=== PATIENT | male | born 1995 | race Two or more races ===

== ENCOUNTER 2024-03-14 18:32 | Emergency (ER) | payer MEDICARE, SELFPAY ==
--- NOTE | 2024-03-14 18:48 | PD.EDRME ---
Rapid Medical Screening Exam RME Arrival date/time: 03/14/24 18:32 Time Seen by Provider: 03/14/24 18:45 RME Narrative: 28-year-old male with history of seizure disorder brought in by ambulance after had 1 minute witnessed seizure. The patient was lowered to the ground and did not hit his head. No fevers.
--- NOTE | 2024-03-14 18:49 | EDNOTE_ITS ---
ED General RME/HPI General Chief complaint: Seizure Stated complaint: SEIZURE Time Seen by Provider: 03/14/24 18:45 Arrival date/time: 03/14/24 18:32 Limitations: no limitations RME / HPI RME / HPI narrative: 28-year-old male with no history of seizure disorder brought in by ambulance after had 1 minute witnessed seizure. The patient was lowered to the ground and did not hit his head. No fevers. Dr. Castro's Main ED Evaluation: 28-year-old male with intellectual disability with intermittent explosive disorder, autism and history of tachycardia who had a [place] seizure for the first time. They report that he had no headache today and otherwise no weakness. No pupillary abnormality. Patient is on trazodone/ARipiprazole, Clozipine. During the event his pulse was 96 otherwise. fingerstick was 106. No tongue biting, and he did not urinate on himself. The mergers and acquisitions consultant that is here in the Ed with did not witnewss the seizure and the patient is back to baseline. The patient is on medications for schizoaffective disorder, intermittent explosive disorder, essential hypertension, propranolol for tachycardia Review of Systems Review of Systems Systems Reviewed: All systems reviewed, normal except as documented Past Medical History Social History SMOKING STATUS: Never smoker ED Exam General Limitations: Present no limitations General appearance: Present alert and in no apparent distress Head Head exam: Present atraumatic Eye Eye exam: Present normal appearance, PERRL and EOMI ENT ENT exam: Present normal exam, normal oropharynx and mucous membranes moist Neck Neck exam: Present normal inspection, full ROM and trachea midline Chest Chest inspection: Present normal inspection and symmetric chest wall rise Respiratory Respiratory exam: Present normal lung sounds bilaterally Cardiovascular Cardiovascular exam: Present regular rate, normal rhythm and normal heart sounds Abdominal Exam Abdominal exam: Present soft and normal bowel sounds Extremities Exam Extremities exam: Present normal inspection and full ROM Back Exam Back exam: Present normal inspection and full ROM Neurological Exam Neurological exam: Present alert, oriented X3 and CN II-XII intact Psychiatric Psychiatric exam: Present normal affect and normal mood Skin Skin exam: Present warm, dry, intact and normal color Course Course Course Narrative: CXR is ordered to r/o aspiration pneumonia. Quality Measures none Orders Category Date Time Status IV [Insert IV] STAT Care 03/14/24 18:52 Active Seizure precautions ONCE Care 03/14/24 18:[address] head/brain wo con Stat Exams 03/14/24 19:26 Completed CXRP [XR chest 1V portable] Stat Exams 03/14/24 20:59 Completed CBC Stat Lab 03/14/24 19:26 Completed CMP [Comprehensive Metabolic Panel] Stat Lab 03/14/24 19:26 Completed Drug Screen,Urine Stat Lab 03/14/24 20:34 Completed Urinalysis Stat Lab 03/14/24 20:34 Completed Vital Signs Vital signs: Vital Signs Temperature 98.1 F 03/14/24 18:52 Pulse Rate 94 03/14/24 18:52 Blood Pressure 116/70 03/14/24 18:52 Pulse Oximetry (%) 96 03/14/24 18:52 Oxygen Delivery Method Room Air 03/14/24 18:52 Pulse ox is 96% on room air, which is normal according to my interpretation. [facility] Patient data External records reviewed:: [facility] previous records (Per chart review, patient has no previous ED visits or admissions to this facility.) Clinical information provided by:: patient and EMS Social determinants that could affect healthcare access:: none Patient has the following chronic illnesses:: HTN, schizoaffective disorder How is presenting disease/condition affected by chronic disease/condition?: u neffected by Evaluation data The following diagnostics were reviewed and interpreted by me:: lab results and radiology exam(s) Lab and/or radiology exams considered but not ordered:: none Interpretation Summary: CBC is normal, Potassium is slightly low at 3.2, UA is unremarkable, UDS is negative, according to my interpretation. CXR show mild cardiomegaly, interstitial markings, no obvious infiltrate, no CHF, no aspiration pneumonia, according to my interpretation. ----- I have personally reviewed the radiology data and agree with the radiologist's interpretation below: [facility] Report Signed Patient: MOI BRADY. Record#: [id number] Birthdate: 1995 Age/Sex: 28 / M Location: [facility] Attending Dr: Ordering Physician: Abbie Castro MD Date of Service: 03/14/24 Procedure(s): CT head/brain wo con Accession Number(s): [id number] cc: Walter Christy MD; NO PRIMARY/FAMILY,PHYSICIAN; Abbie Castro MD~ Examination: CT brain head without contrast. 2-D sagittal coronal reconstructions Date and time of exam:March 14, 2024 1948 hrs. Comparison May 05, 2023 Indications: Seizure episode with syncope today CTDI: vol (mGy):62.3 DLP: (mGycm):1316 Technique: Multiple CT axial sections of the brain have been obtained, 5 mm slice thickness. Contrast has not been administered. 2-D sagittal, coronal reconstructions have been obtained Low dose protocols were performed. One or more of the following dose reduction techniques were used; automated exposure control, adjustment of the mA and/or KV according to patient size, use of iterative reconstruction technique. Findings: No significant ventricular enlargement. Intra-axial or extra-axial hemorrhage density is not seen. No mass effect or midline shift Basal cisterns are not remarkable. Fourth ventricle is midline. Cranial vault intact. Impression: Negative for acute hemorrhage, mass effect or midline shift Dictated By: Walter Christy MD Signed By: <Electronically signed by Walter Christy MD in OV> 03/14/242000 Medications Medications considered but not ordered:: none Medication administrations:: see above, if any Consultations Consultation(s) initiated? (list below): No Diagnosis Differential Diagnosis ED Complaint MDM: choking episode, hyponatremia, electrolyte abnormality, dehydration Most likely diagnosis given after review of the tests above:: Other DDx: lack of sleep, behavioral issue Final Dx: see below Admission Indicated Admission indicated?: not indicated Explain why admission is indicated or not indicated:: Admission criteria not met. Admission Request Was there a request for admission?: No Disposition Plan Disposition Plan: Discharge Discharge Attestation Discharge Attestation: The patient and all family members were given an opportunity to ask questions and understood the discharge instructions. Discharge instructions specifically effects, indications for sooner follow up or return to the emergency department, and the expected course of current diagnosis. Patient condition: Stable Medical Decision Making MDM Narrative MDM Narrative: DDX: Dehydration, UTI, Tumor, Syncope, new seizure Swepsis. 28-year-old male with schizoaffective disorder presenting to the emergency department with possible seizure. I spoke to the nurse who witnessed the event who stated that the patient was at the dining area and appeared to be choking they went over and he was stiff. They lowered him to the ground and otherwise he did not have any tonic-clonic activity and he did not lose consciousness. The patient did not have a fever and otherwise is back at his baseline. He did not fall and hit his head. In the emergency department the patient has a temperature of 98 and otherwise is not tachycardic or hypotensive. While in the emergency department the patient had a CT scan that did not show tumor. Doubt actual seizure. Could have been choking episode. At this time the patient does not have evidence of aspiration pneumonia, O2 saturation is normal and otherwise has no wheezing. Differential Diagnosis Differential Diagnosis: choking episode, hyponatremia, electrolyte abnormality, dehydration Lab Data 03/14/24 19:26 03/14/24 19:26 Labs: Lab Results 03/14/24 03/14/24 Range/Units 19:26 20:34 WBC 9.8 (3.8-10.6) Thou/mm3 RBC 4.59 (4.50-5.90) Miln/mm3 Hgb 13.3 L (13.5-16.0) g/dL Hct 37.9 L (41.0-53.0) % MCV 83 (80-100) fL MCH 29.0 (25.0-35.0) pg MCHC 35.1 (31.0-37.0) g/dl RDW Std Deviation 36.1 (35.1-43.9) fL Plt Count 207 (140-440) Thou/mm3 Neut % (Auto) 76 (37-80) % Lymph % (Auto) 20 (10-50) % [place] % (Auto) 3 (0-12) % Eos % (Auto) 1 (0-10) % Baso % (Auto) 0 (0-2.5) % Neut # (Auto) 7.5 (1.8-7.7) Thou/mm3 Lymph # (Auto) 1.9 (1.0-4.8) Thou/mm3 [place] # (Auto) 0.3 (0.0-0.8) Thou/mm3 Eos # (Auto) 0.1 (0.0-0.5) Thou/mm3 Baso # (Auto) 0.0 (0.0-0.2) Thou/mm3 Immature Gran # (Auto) 0.03 H (0.00-0.00) Thou/mm3 Absolute Nucleated RBC 0.00 (0.00-0.00) Thou/mm3 Immature Gran % 0 (0-0) % Nucleated RBC % 0 (0) /100 WBC Sodium 140 (136-145) mMol/L Potassium 3.2 L (3.4-5.1) mMol/L Chloride 105 (98-107) mMol/L Carbon Dioxide 26.8 (20.0-31.0) mMol/L Anion Gap 8 (7-16) BUN 10 (9-23) mg/dL Creatinine 1.0 (0.6-1.3) mg/dL Estim Creat Clear Calc 115.4 (>60) mL/min eGFR > 60 (60 - ) See Note BUN/Creatinine Ratio 10 L (12-20) Ratio Glucose 120 H (74-106) mg/dL Calculated Osmolality 279 (275-295) Calcium 9.4 (8.3-10.6) mg/dL Corrected Calcium 9.4 (8.5-10.1) mg/dL Total Bilirubin 0.4 (0.3-1.2) mg/dL AST 34 (0-34) U/L ALT 69 H (10-49) U/L Alkaline Phosphatase 52 (46-116) U/L Total Protein 7.2 (5.7-8.2) gm/dL Albumin 4.4 (3.5-5.0) gm/dL Globulin 2.8 (2.3-3.5) gm/dL Albumin/Globulin Ratio 1.6 (1.2-2.2) Ur Collection Type Voided Urine Color Lt-Yellow (Lt Yel-Yel) Urine Clarity Clear (Clear/Hazy) Urine pH 8.0 H (5.0-7.0) Ur Specific [place] 1.021 (1.001-1.035) Urine Protein Trace (Neg - Trace) Urine Glucose (UA) Negative (Negative) Urine Ketones Negative (Negative) Urine Blood Negative (Negative) Urine Nitrite Negative (Negative) Urine Bilirubin Negative (Negative) Urine Urobilinogen (Auto) Negative (0.0-1.0) mg/dL Ur Leukocyte Esterase Negative (Negative) Urine RBC 3 (0-3) /hpf Urine WBC 1 (0-5) /hpf Ur Squamous Epith Cells 0 (0-5) /hpf Urine Bacteria Rare (None) Hyaline Casts < 1 (0-1) /hpf Urine Opiates Screen Negative (Negative) Urine Fentanyl Screen Negative (Negative) Ur Barbiturates Screen Negative (Negative) U Amphetamin/Meth Scrn Negative (Negative) U Benzodiazepines Scrn Negative (Negative) U Cocaine Metab Screen Negative (Negative) U Marijuana (THC) Screen Negative (Negative) Discharge Plan Plan Patient Disposition: HOME (Self Care) Disposition Comment: [facility] Patient condition on transfer: Stable Prescriptions/Referrals Referrals: No Primary/Family,Physician [Primary Care Provider] - In 1 week Problem List Clinical Impression: Choking episode Patient/Caregiver Discharge Instructions Education Materials: ED Symptoms With Uncertain Cause Additional Instructions: Stream unsure if the patient actually had a seizure versus just a side effect from a possible choking episode. Please follow-up with his primary care to get a possible EEG as an outpatient if he has a another episode but at this time the patient is stable to be discharged back to the facility. His potassium was slightly decreased which has been replaced. I will recheck his potassium level in 1 week. Return to the emergency department for worsening symptoms, or any other concerns. Avoid activity in which the patient can of fall and hit his head like riding a bike or swimming alone. Print Language: Cymro Stand Alone Forms: Jessie Award Info., Patient Portal Info Letter
[2024-03-14 18:52] VITALS: BP 116/70; PULSE 94; TEMP 36.7; O2SAT 96
[2024-03-14 18:56] VITALS: BP 105/71; PULSE 93; RESP 19; TEMP 36.9; O2SAT 96
--- NOTE | 2024-03-14 19:26 | XR_ITS ---
Examination: CT brain head without contrast. 2-D sagittal coronal reconstructions Date and time of exam:March 14, 2024 1948 hrs. Comparison May 05, 2023 Indications: Seizure episode with syncope today CTDI: vol (mGy):62.3 DLP: (mGycm):1316 Technique: Multiple CT axial sections of the brain have been obtained, 5 mm slice thickness. Contrast has not been administered. 2-D sagittal, coronal reconstructions have been obtained Low dose protocols were performed. One or more of the following dose reduction techniques were used; automated exposure control, adjustment of the mA and/or KV according to patient size, use of iterative reconstruction technique. Findings: No significant ventricular enlargement. Intra-axial or extra-axial hemorrhage density is not seen. No mass effect or midline shift Basal cisterns are not remarkable. Fourth ventricle is midline. Cranial vault intact. Impression: Negative for acute hemorrhage, mass effect or midline shift
[2024-03-14 19:35] VITALS: BMI 28.8
[2024-03-14 19:36] LABS: Basophils % (Auto) 0 % (0-2.5); Eosinophils # (Auto) 0.1 Thou/mm3 (0.0-0.5); Eosinophils % (Auto) 1 % (0-10); Hematocrit 37.9 % (41.0-53.0); Hemoglobin 13.3 g/dL (13.5-16.0); Immature Granulocytes % (Auto) 0 % (0-0); Immature Granulocytes Auto 0.03 Thou/mm3 (0.00-0.00); Lymphocytes # (Auto) 1.9 Thou/mm3 (1.0-4.8); Lymphocytes % (Auto) 20 % (10-50); Mean Corpuscular HGB Conc 35.1 g/dl (31.0-37.0); Mean Corpuscular Volume 83 fL (80-100); Monocytes # (Auto) 0.3 Thou/mm3 (0.0-0.8); Monocytes % (Auto) 3 % (0-12); Neutrophils # (Auto) 7.5 Thou/mm3 (1.8-7.7); Neutrophils % (Auto) 76 % (37-80); Nucleated Red Blood Cell % 0 /100 WBC (0); Platelet Count 207 Thou/mm3 (140-440); RDW Standard Deviation 36.1 fL (35.1-43.9); Red Blood Count 4.59 Miln/mm3 (4.50-5.90); White Blood Count 9.8 Thou/mm3 (3.8-10.6)
[2024-03-14 19:56] LABS: Alanine Aminotransferase 69 U/L (10-49); Albumin, Serum 4.4 gm/dL (3.5-5.0); Albumin/Globulin Ratio 1.6 (1.2-2.2); Alkaline Phosphatase 52 U/L (46-116); Anion Gap 8 (7-16); Aspartate Amino Transferase 34 U/L (0-34); BUN/Creatinine Ratio 10 Ratio (12-20); Bilirubin,Total 0.4 mg/dL (0.3-1.2); Blood Urea Nitrogen 10 mg/dL (9-23); Calcium 9.4 mg/dL (8.3-10.6); Calcium (Corrected) 9.4 mg/dL (8.5-10.1); Carbon Dioxide 26.8 mMol/L (20.0-31.0); Chloride 105 mMol/L (98-107); Estimated Creatinine Clearance 115.4 mL/min (>60); Globulin 2.8 gm/dL (2.3-3.5); Glucose 120 mg/dL (74-106); Osmolality,Calculated 279 (275-295); Potassium 3.2 mMol/L (3.4-5.1); Sodium 140 mMol/L (136-145); Total Protein 7.2 gm/dL (5.7-8.2); eGFR > 60 See Note
[2024-03-14 20:52] LABS: Collection Type, Urine Voided; Squamous Epithelial Cell,Urine 0 /hpf (0-5)
--- NOTE | 2024-03-14 20:59 | XR_ITS ---
Examination: AP chest single view Technique one AP portable upright chest single view Exam date and time: December 14, 20232123 hrs. Indications: Choking today. Findings: No significant cardiac enlargement No aspiration pneumonia Intact osseous structures Impression: No aspiration pneumonia
[2024-03-14 21:04] LABS: Amphetamine/Methamp Scrn,U Negative (Negative); Barbiturate Screen,Urine Negative (Negative); Benzodiazepines Screen,Urine Negative (Negative); Benzoylecgonine Screen, Ur Negative (Negative); Fentanyl Screen,Urine Negative (Negative); Opiate Screen,Urine Negative (Negative); THC Screen,Urine Negative (Negative)
[2024-03-14 21:09] LABS: Bacteria,Urine Rare; Bilirubin,Urine Negative (Negative); Blood,Urine Negative (Negative); Clarity,Urine Clear (Clear/Hazy); Color,Urine Lt-Yellow (Lt Yel-Yel); Glucose, Urine Negative (Negative); Hyaline Casts,Urine < 1 /hpf (0-1); Ketones,Urine Negative (Negative); Leukocyte Esterase,Urine Negative (Negative); Nitrite,Urine Negative (Negative); Protein,Urine Trace (Neg - Trace); RBC,Urine 3 /hpf (0-3); Specific Gravity,Urine 1.021 (1.001-1.035); Urobilinogen,Urine Negative mg/dL (0.0-1.0); WBC,Urine 1 /hpf (0-5)
[2024-03-14 21:55] VITALS: BP 119/78; PULSE 92; RESP 16; O2SAT 98
== END 2024-03-14 21:58 | disposition home or self-care (01) ==
PROVIDERS: Emergency Provider Emergency Medicine
DX: R09.89 Other specified symptoms and signs involving the circulatory and respiratory systems (principal); R56.9 Unspecified convulsions
CPT/HCPCS: 36415; 70450; 71045; 80053; 80307; 81001; 85025; 99284